=== PATIENT | female | born 1940 | race Caucasian/White ===

== ENCOUNTER 2017-09-28 08:00 | Inpatient (IN) | payer OTHER ==
[~2017-09-28] VITALS: Ht 162.6 cm; Wt 72.6 kg
[2017-09-28] MEDS ORDERED: TOPROL XL50 M1 PO (12:33)
[2017-09-28] MEDS ORDERED: COZAAR25 MG PO (12:33)
[2017-09-28] MEDS ORDERED: XARELTO20 MG PO (12:34)
[2017-09-28] MEDS ORDERED: ATORVASTATIN CA10 MG PO (12:34)
[2017-09-28] MEDS ORDERED: PEPCID40 MG PO (12:35)
[2017-10-05] MEDS ORDERED: PERCOCET 5-3251 EACH PO (16:13)
[2017-10-05] MEDS ORDERED: GABAPENTIN800 MG PO (16:13)
[2017-10-05] MEDS ORDERED: CLONAZEPAM1 MG PO (16:13)
[2017-10-05] MEDS ORDERED: AMOX-CLAV 875-1 EACH PO (16:13)
[2017-10-05] MEDS ORDERED: DOCUSATE SODIU100 MG PO (16:13)
== END 2017-10-05 16:46 | disposition home or self-care (01) | DRG 460 ==
LOC: PED 10-04 05:55 → O/R 10-04 05:55 → SURH 10-04 08:00 → PED 10-04 16:35
PROVIDERS: Orthopaedic Surgery Orthopaedic Surgery of the Spine
PROC: 0SG30AJ Fusion of Lumbosacral Joint with Interbody Fusion Device, Posterior Approach, Anterior Column, Open Approach (ICD-10-PCS; 2017-10-04)
PROC: 0ST40ZZ Resection of Lumbosacral Disc, Open Approach (ICD-10-PCS; 2017-10-04)
PROC: 07DS3ZZ Extraction of Vertebral Bone Marrow, Percutaneous Approach (ICD-10-PCS; 2017-10-04)
PROC: 00NY0ZZ Release Lumbar Spinal Cord, Open Approach (ICD-10-PCS; principal; 2017-10-04 14:00)
DX: M47.27 Other spondylosis with radiculopathy, lumbosacral region (principal); M51.17 Intervertebral disc disorders with radiculopathy, lumbosacral region; I10 Essential (primary) hypertension